=== PATIENT | male | born 2000 | race Caucasian/White ===

== ENCOUNTER 2019-05-23 10:32 | Emergency (ER) | payer SELFPAY ==
[~2019-05-23] VITALS: Ht 180.3 cm; Wt 79.5 kg
[2019-05-23 10:38] VITALS: BP 140/71; TEMP 97.5
[2019-05-23] MEDS ORDERED: FLEXERIL 1010 MG/TAB PO (12:08)
[2019-05-23 12:23] VITALS: PULSE 59
== END 2019-05-23 12:15 | disposition home or self-care (01) ==
LOC: COL.ER 10:32
DX: M54.2 Cervicalgia (principal)